=== PATIENT | female | born 1935 | race Caucasian/White ===

== ENCOUNTER 2018-04-27 18:02 | Inpatient (IN) | payer OTHER, MEDICAID ==
[~2018-04-27] VITALS: Ht 152.4 cm; Wt 58.1 kg
[~2018-04-27 18:02] MED LIST: ALPOS OP; ASPI-1093 GT; ATOR10TA GT; DOCU1TAB PO; DONE10TA10 GT; DORZ10SO1 OP; FERR325E14 GT; FURO-572 GT; LEVEMIR SUBQ; LOSA25TA22 GT; MEG40 PO; MEMA10TA GT; METF850T GT; MIRT30TA PO; OLAN5TAB29 PO; OMEP40EC1 PO; POLY15SO48 BOTH EYES; POTA10TE30 PO; PROC4I SUBQ; SLIDE SUBQ; SYN.075 GT; XALOS BOTH EYES; [UNRECOGNIZED DRUG - CODE] GT; [UNRECOGNIZED DRUG - CODE] SUBQ
[2018-04-27 18:15] VITALS: BP 107/53
[2018-04-27] MEDS ORDERED: NACL 0.9% 1,500 ML IV ONE (18:15)
[2018-04-27] MEDS ORDERED: ACET-2619 GT (18:54)
[2018-04-27] MEDS ORDERED: ASCO500T45 GT (18:54)
[2018-04-27 19:03] LABS: BASOPHILS # (AUTO) 0.1 K/uL (0.00-0.22); BASOPHILS % (AUTO) 0.8 % (0.0-2.0); EOSINOPHILS # (AUTO) 0.1 K/uL (0-0.4); LYMPHOCYTES # (AUTO) 1.4 K/uL (2.5-16.5); LYMPHOCYTES % (AUTO) 18.3 % (20.5-51.1); MEAN CORPUSCULAR HEMOGLOBIN 24 pg (27-31); MEAN CORPUSCULAR HGB CONC 29 g/dL (33-37); MEAN CORPUSCULAR VOLUME 83.3 fL (80-94); MONOCYTES # (AUTO) 0.8 K/uL (0.8-1.0); MONOCYTES % (AUTO) 10.2 % (1.7-9.3); NEUTROPHILS # (AUTO) 5.2 K/uL (1.8-7.7); NEUTROPHILS % (AUTO) 69.7 % (42.2-75.2); PLATELET COUNT (AUTO) 268 K/uL (140-450); RED BLOOD CELL COUNT(AUTO) 2.41 MIL/uL (4.20-5.40); RED CELL DISTRIBUTION WIDTH 18.8 % (11.6-13.7); WHITE BLOOD COUNT (AUTO) 7.5 K/uL (4.8-10.8)
[2018-04-27 19:09] LABS: HEMATOCRIT 20.1 % (36-48); HEMOGLOBIN 5.8 g/dL (12.0-16.0)
[2018-04-27 19:11] LABS: ANION GAP 16.7 (8-16); CARBON DIOXIDE 24.6 mmol/L (21-32); CHLORIDE 102 mmol/L (98-107); CREATININE 0.9 mg/dL (0.6-1.3); GLUCOSE 148 mg/dL (74-106); POTASSIUM 4.3 mmol/L (3.5-5.1); SODIUM SERUM 139 mmol/L (136-145); UREA NITROGEN, BLOOD 39 mg/dL (7-18)
[2018-04-27 19:18] LABS: ASPARTATE AMINOTRANSFERASE 15 U/L (15-37); LIPASE 246 U/L (73-393); TOTAL BILIRUBIN 0.2 mg/dL (0.0-1.0)
[2018-04-27 19:22] LABS: APPEARANCE,URINE CLEAR (CLEAR); BILIRUBIN,URINE NEGATIVE (NEGATIVE); BLOOD, URINE NEGATIVE (NEGATIVE); COLOR,URINE YELLOW (YELLOW); LEUKOCYTE ESTERASE ,URINE NEGATIVE (NEGATIVE); NITRITE, URINE NEGATIVE (NEGATIVE); PH,URINE 6.5 (5.0-9.0); UGLUCOSE NEGATIVE (NEGATIVE)
[2018-04-27 19:25] LABS: PROTHROMBIN TIME 10.8 secs (10.8-13.4)
[2018-04-27] MEDS ORDERED: NACL 0.9% 1,000 ML IV SCH (19:42)
[2018-04-27] MEDS ORDERED: HYDROcodone/APAP 7.5/325 MG 1 TAB PO PRN (19:45)
[2018-04-27] MEDS ORDERED: DOCUSATE SODIUM 100 MG GELCAP PO PRN (19:45)
[2018-04-27] MEDS ORDERED: ACETAMINOPHEN 325 MG TAB PO PRN (19:45)
[2018-04-27 20:28] LABS: CHOL/HDL RATIO 2.6 (1-4.5); FREE T4 (FREE THYROXINE) 1.27 ng/dL (0.76-1.46); MAGNESIUM 2.1 mg/dL (1.8-2.4); PHOSPHORUS 2.7 mg/dL (2.5-4.9); THYROID STIMULATING HORMONE 5.11 uIU/mL (0.34-3.74)
[2018-04-27 20:30] VITALS: BP 91/45
[2018-04-27] MEDS ORDERED: PIPER/TAZO 3.375GM/D5W PREMIX 50 ML IV STA (20:32)
[2018-04-27] MEDS ORDERED: PIPERACILLIN/TAZOBACTAM 3.375 GM VIAL IV ONE (20:42)
[2018-04-27] MEDS ORDERED: DEXTROSE 50% 50 ML SYR IVP PRN (21:50)
[2018-04-27] MEDS: DEXT 5% / NACL 0.9% 500 ML IV SCH (22:00)
[2018-04-28] VITALS: BP 111/48
[2018-04-28] MEDS ORDERED: KETOROLAC 15 MG/ML VIAL IVP SCH
[2018-04-28] MEDS: DEXT 5% / NACL 0.9% 500 ML IV SCH ×3 (03:17→18:47)
[2018-04-28 04:00] VITALS: BP 106/48
[2018-04-28] MEDS: LEVOTHYROXINE 0.075 MG TAB GT SCH (05:47)
[2018-04-28] MEDS: BLOOD GLUCOSE MONITORING 1 DEV DEV FS SCH ×4 (06:33→21:41)
[2018-04-28 06:54] LABS: BASOPHILS # (AUTO) 0.1 K/uL (0.00-0.22); BASOPHILS % (AUTO) 1.1 % (0.0-2.0); EOSINOPHILS # (AUTO) 0.1 K/uL (0-0.4); HEMATOCRIT 25.5 % (36-48); HEMOGLOBIN 8.2 g/dL (12.0-16.0); LYMPHOCYTES % (AUTO) 17.4 % (20.5-51.1); MEAN CORPUSCULAR HEMOGLOBIN 27 pg (27-31); MEAN CORPUSCULAR HGB CONC 32 g/dL (33-37); MEAN CORPUSCULAR VOLUME 83.5 fL (80-94); MONOCYTES # (AUTO) 0.7 K/uL (0.8-1.0); MONOCYTES % (AUTO) 11.7 % (1.7-9.3); NEUTROPHILS # (AUTO) 3.9 K/uL (1.8-7.7); NEUTROPHILS % (AUTO) 67.8 % (42.2-75.2); PLATELET COUNT (AUTO) 193 K/uL (140-450); RED BLOOD CELL COUNT(AUTO) 3.06 MIL/uL (4.20-5.40); RED CELL DISTRIBUTION WIDTH 15.6 % (11.6-13.7); WHITE BLOOD COUNT (AUTO) 5.7 K/uL (4.8-10.8)
[2018-04-28 07:19] LABS: MAGNESIUM 1.9 mg/dL (1.8-2.4); PHOSPHORUS 3.1 mg/dL (2.5-4.9)
[2018-04-28 07:27] LABS: ANION GAP 12.4 (8-16); CARBON DIOXIDE 24.4 mmol/L (21-32); CHLORIDE 108 mmol/L (98-107); CREATININE 0.7 mg/dL (0.6-1.3); GLUCOSE 145 mg/dL (74-106); POTASSIUM 3.8 mmol/L (3.5-5.1); SODIUM SERUM 141 mmol/L (136-145); UREA NITROGEN, BLOOD 34 mg/dL (7-18)
[2018-04-28 08:00] VITALS: BP 107/43
[2018-04-28 08:19] LABS: T4 (THYROXINE) 9.8 ug/dL (4.5-12.0)
[2018-04-28] MEDS ORDERED: FUROSEMIDE 20 MG TAB GT SCH (09:00)
[2018-04-28] MEDS ORDERED: metFORMIN 850 MG TAB GT SCH (09:00)
[2018-04-28] MEDS ORDERED: DOCUSATE SOD/SENNA 50/8.6 MG 1 TAB PO SCH (09:00)
[2018-04-28] MEDS: ASCORBIC ACID 500 MG TAB GT SCH (09:16)
[2018-04-28] MEDS: MEMANTINE 10 MG TAB GT SCH ×2 (09:17→21:43)
[2018-04-28 12:00] VITALS: BP 110/34
[2018-04-28] MEDS: INSULIN LISPRO SLIDING SCALE 100 UNITS/ML VIAL SUBQ PRN ×2 (12:05→17:25)
[2018-04-28] MEDS: LATANOPROST 0.005% OP 2.5 ML BTL BOTH EYES SCH (12:30)
[2018-04-28] MEDS: DORZOLAMIDE 2% OP 10 ML BTL OP SCH ×2 (13:00→17:00)
[2018-04-28] MEDS ORDERED: fentaNYL 0.05 MG/ML VIAL ONE (13:13)
[2018-04-28] MEDS ORDERED: MIDAZOLAM 2 MG/2 ML VIAL ONE (13:13)
[2018-04-28] MEDS ORDERED: diphenhydrAMINE 50 MG/ML VIAL ONE (13:13)
[2018-04-28 14:20] VITALS: BP 136/54
[2018-04-28] MEDS ORDERED: MAGNESIUM CITRATE 300 ML BTL PO SCH (14:30)
[2018-04-28] MEDS ORDERED: fentaNYL 0.05 MG/ML VIAL IVP ONE (14:35)
[2018-04-28] MEDS ORDERED: MIDAZOLAM 2 MG/2 ML VIAL IVP ONE (14:35)
[2018-04-28] MEDS ORDERED: SODIUM FERRIC GLUCONATE 125 MG in NACL 0.9% 100 ML IV SCH (15:00)
[2018-04-28 20:00] VITALS: BP 118/44
[2018-04-28] MEDS: BRIMONIDINE TARTRATE 0.2% OP 5 ML BTL OP SCH (21:00)
[2018-04-28] MEDS ORDERED: INSULIN LANTUS 100 UNITS/ML 10 ML VIAL SUBQ SCH (21:00)
[2018-04-28] MEDS: SENNA 8.6 MG TAB PO SCH (21:42)
[2018-04-28] MEDS: ATORVASTATIN 20 MG TAB GT SCH (21:42)
[2018-04-28] MEDS: LACTULOSE 20 GM/30 ML UDC PO SCH (21:43)
[2018-04-28] MEDS: DONEPEZIL 10 MG TAB GT SCH (21:43)
[2018-04-29] MEDS ORDERED: KETOROLAC 15 MG/ML VIAL IVP PRN
[2018-04-29] MEDS: LEVOTHYROXINE 0.075 MG TAB GT SCH (06:17)
[2018-04-29] MEDS: BLOOD GLUCOSE MONITORING 1 DEV DEV FS SCH ×4 (06:24→21:32)
[2018-04-29 06:44] LABS: BASOPHILS # (AUTO) 0.1 K/uL (0.00-0.22); BASOPHILS % (AUTO) 0.7 % (0.0-2.0); EOSINOPHILS # (AUTO) 0.1 K/uL (0-0.4); EOSINOPHILS % (AUTO) 0.8 % (0.0-4.0); HEMATOCRIT 30.7 % (36-48); HEMOGLOBIN 9.9 g/dL (12.0-16.0); LYMPHOCYTES # (AUTO) 0.9 K/uL (2.5-16.5); LYMPHOCYTES % (AUTO) 11.2 % (20.5-51.1); MEAN CORPUSCULAR HEMOGLOBIN 27 pg (27-31); MEAN CORPUSCULAR HGB CONC 32 g/dL (33-37); MEAN CORPUSCULAR VOLUME 82.2 fL (80-94); MONOCYTES # (AUTO) 0.7 K/uL (0.8-1.0); MONOCYTES % (AUTO) 8.7 % (1.7-9.3); NEUTROPHILS # (AUTO) 6.6 K/uL (1.8-7.7); NEUTROPHILS % (AUTO) 78.6 % (42.2-75.2); PLATELET COUNT (AUTO) 228 K/uL (140-450); RED BLOOD CELL COUNT(AUTO) 3.74 MIL/uL (4.20-5.40); RED CELL DISTRIBUTION WIDTH 16.6 % (11.6-13.7); WHITE BLOOD COUNT (AUTO) 8.3 K/uL (4.8-10.8)
[2018-04-29 07:10] LABS: ANION GAP 12.6 (8-16); CARBON DIOXIDE 25.9 mmol/L (21-32); CHLORIDE 105 mmol/L (98-107); CREATININE 0.6 mg/dL (0.6-1.3); GLUCOSE 210 mg/dL (74-106); POTASSIUM 3.5 mmol/L (3.5-5.1); SODIUM SERUM 140 mmol/L (136-145); UREA NITROGEN, BLOOD 12 mg/dL (7-18)
[2018-04-29] MEDS: INSULIN LISPRO SLIDING SCALE 100 UNITS/ML VIAL SUBQ PRN ×4 (07:47→20:51)
[2018-04-29 08:00] VITALS: BP 127/47
[2018-04-29] MEDS: SENNA 8.6 MG TAB PO SCH ×2 (09:00→20:38)
[2018-04-29] MEDS: BRIMONIDINE TARTRATE 0.2% OP 5 ML BTL OP SCH ×3 (09:00→20:40)
[2018-04-29] MEDS: DORZOLAMIDE 2% OP 10 ML BTL OP SCH ×4 (09:00→17:00)
[2018-04-29] MEDS: LACTULOSE 20 GM/30 ML UDC PO SCH (09:00)
[2018-04-29 09:07] LABS: TRANSFERRIN 332 mg/dL (200-370)
[2018-04-29] MEDS: SODIUM FERRIC GLUCONATE 125 MG in NACL 0.9% 100 ML IV SCH ×2 (09:57→20:40)
[2018-04-29] MEDS: MEMANTINE 10 MG TAB GT SCH ×2 (09:57→20:39)
[2018-04-29] MEDS: ASCORBIC ACID 500 MG TAB GT SCH (09:58)
[2018-04-29] MEDS: MULTIVITAMIN 1 TAB PO SCH (09:58)
[2018-04-29] MEDS: LATANOPROST 0.005% OP 2.5 ML BTL BOTH EYES SCH (10:09)
[2018-04-29 12:00] VITALS: BP 136/56
[2018-04-29] MEDS ORDERED: THERAHONEY WOUND DRESSING TP PRN (12:40)
[2018-04-29] MEDS ORDERED: CHLORHEXADINE GLUC 2% CLOTH TP SCH (13:00)
[2018-04-29] MEDS: CHLORHEXADINE GLUC 2% CLOTH TP SCH (13:01)
[2018-04-29] MEDS: MUPIROCIN 2% OINT 22 GM TUBE TP SCH (13:08)
[2018-04-29 16:00] VITALS: BP 121/43
[2018-04-29 16:07] LABS: FOLIC ACID > 20.00 ng/mL (>3.0)
[2018-04-29] MEDS: NACL 0.9% 1,000 ML IV SCH (16:10)
[2018-04-29] MEDS ORDERED: MAGNESIUM HYDROXIDE 2400 MG/30 ML UDC PO PRN (16:15)
[2018-04-29 20:00] VITALS: BP 118/70
[2018-04-29] MEDS: DONEPEZIL 10 MG TAB GT SCH (20:38)
[2018-04-29] MEDS: ATORVASTATIN 20 MG TAB GT SCH (20:39)
[2018-04-29] MEDS: SKINTEGRITY HYDROGEL TP SCH (20:41)
[2018-04-30] VITALS: BP 127/58
[2018-04-30 05:20] VITALS: BP 123/60
[2018-04-30] MEDS: NACL 0.9% 1,000 ML IV SCH ×2 (05:56→21:06)
[2018-04-30] MEDS: BLOOD GLUCOSE MONITORING 1 DEV DEV FS SCH ×4 (06:09→20:49)
[2018-04-30] MEDS: LEVOTHYROXINE 0.075 MG TAB GT SCH (06:09)
[2018-04-30] MEDS: INSULIN LISPRO SLIDING SCALE 100 UNITS/ML VIAL SUBQ PRN ×4 (06:16→20:16)
[2018-04-30 06:32] LABS: BASOPHILS # (AUTO) 0.1 K/uL (0.00-0.22); BASOPHILS % (AUTO) 1.1 % (0.0-2.0); EOSINOPHILS # (AUTO) 0.1 K/uL (0-0.4); EOSINOPHILS % (AUTO) 1.3 % (0.0-4.0); HEMATOCRIT 26.6 % (36-48); HEMOGLOBIN 8.8 g/dL (12.0-16.0); LYMPHOCYTES # (AUTO) 1.1 K/uL (2.5-16.5); LYMPHOCYTES % (AUTO) 12.2 % (20.5-51.1); MEAN CORPUSCULAR HEMOGLOBIN 27 pg (27-31); MEAN CORPUSCULAR HGB CONC 33 g/dL (33-37); MEAN CORPUSCULAR VOLUME 82.8 fL (80-94); MONOCYTES # (AUTO) 0.7 K/uL (0.8-1.0); MONOCYTES % (AUTO) 7.1 % (1.7-9.3); NEUTROPHILS # (AUTO) 7.3 K/uL (1.8-7.7); NEUTROPHILS % (AUTO) 78.3 % (42.2-75.2); PLATELET COUNT (AUTO) 220 K/uL (140-450); RED BLOOD CELL COUNT(AUTO) 3.21 MIL/uL (4.20-5.40); RED CELL DISTRIBUTION WIDTH 16.8 % (11.6-13.7); WHITE BLOOD COUNT (AUTO) 9.4 K/uL (4.8-10.8)
[2018-04-30 06:44] LABS: ANION GAP 12.6 (8-16); CARBON DIOXIDE 24.8 mmol/L (21-32); CHLORIDE 106 mmol/L (98-107); CREATININE 0.5 mg/dL (0.6-1.3); GLUCOSE 237 mg/dL (74-106); POTASSIUM 3.4 mmol/L (3.5-5.1); SODIUM SERUM 140 mmol/L (136-145); UREA NITROGEN, BLOOD 7 mg/dL (7-18)
[2018-04-30 08:00] VITALS: BP 122/48
[2018-04-30] MEDS: BRIMONIDINE TARTRATE 0.2% OP 5 ML BTL OP SCH ×2 (08:24→20:06)
[2018-04-30] MEDS: LATANOPROST 0.005% OP 2.5 ML BTL BOTH EYES SCH (08:24)
[2018-04-30] MEDS: MEMANTINE 10 MG TAB GT SCH ×2 (08:25→20:06)
[2018-04-30] MEDS: LACTULOSE 20 GM/30 ML UDC PO SCH (08:25)
[2018-04-30] MEDS: DORZOLAMIDE 2% OP 10 ML BTL OP SCH ×3 (08:25→16:25)
[2018-04-30] MEDS: ASCORBIC ACID 500 MG TAB GT SCH (08:25)
[2018-04-30] MEDS: MULTIVITAMIN 1 TAB PO SCH (08:25)
[2018-04-30] MEDS: SENNA 8.6 MG TAB PO SCH ×2 (08:25→20:06)
[2018-04-30] MEDS: SODIUM FERRIC GLUCONATE 125 MG in NACL 0.9% 100 ML IV SCH (08:26)
[2018-04-30] MEDS: SKINTEGRITY HYDROGEL TP SCH ×2 (08:26→20:07)
[2018-04-30] MEDS ORDERED: THERAHONEY WOUND DRESSING TP SCH (09:00)
[2018-04-30] MEDS: CHLORHEXADINE GLUC 2% CLOTH TP SCH (12:11)
[2018-04-30] MEDS: MUPIROCIN 2% OINT 22 GM TUBE TP SCH (12:11)
[2018-04-30] MEDS ORDERED: MAGNESIUM HYDROXIDE 2400 MG/30 ML UDC PO SCH ×2 (13:30→15:00)
[2018-04-30] MEDS ORDERED: POTASSIUM CHLORIDE 10 MEQ TABER PO SCH (13:37)
[2018-04-30] MEDS ORDERED: POTASSIUM CHLORIDE 20% 40 MEQ/15 ML UDC GT SCH (14:30)
[2018-04-30 16:00] VITALS: BP 122/51
[2018-04-30] MEDS: DONEPEZIL 10 MG TAB GT SCH (20:06)
[2018-04-30] MEDS: ATORVASTATIN 20 MG TAB GT SCH (20:06)
[2018-05-01] VITALS: BP 136/53
[2018-05-01] MEDS: LEVOTHYROXINE 0.075 MG TAB GT SCH (05:53)
[2018-05-01] MEDS: INSULIN LISPRO SLIDING SCALE 100 UNITS/ML VIAL SUBQ PRN ×4 (05:56→21:04)
[2018-05-01] MEDS: BLOOD GLUCOSE MONITORING 1 DEV DEV FS SCH ×4 (06:34→21:05)
[2018-05-01 06:42] LABS: BASOPHILS # (AUTO) 0.1 K/uL (0.00-0.22); BASOPHILS % (AUTO) 0.9 % (0.0-2.0); EOSINOPHILS # (AUTO) 0.2 K/uL (0-0.4); EOSINOPHILS % (AUTO) 2.4 % (0.0-4.0); HEMATOCRIT 27.1 % (36-48); HEMOGLOBIN 8.8 g/dL (12.0-16.0); LYMPHOCYTES # (AUTO) 0.9 K/uL (2.5-16.5); LYMPHOCYTES % (AUTO) 11.9 % (20.5-51.1); MEAN CORPUSCULAR HEMOGLOBIN 27 pg (27-31); MEAN CORPUSCULAR HGB CONC 32 g/dL (33-37); MEAN CORPUSCULAR VOLUME 84.5 fL (80-94); MONOCYTES # (AUTO) 0.6 K/uL (0.8-1.0); MONOCYTES % (AUTO) 8.3 % (1.7-9.3); NEUTROPHILS # (AUTO) 5.7 K/uL (1.8-7.7); NEUTROPHILS % (AUTO) 76.5 % (42.2-75.2); PLATELET COUNT (AUTO) 217 K/uL (140-450); RED BLOOD CELL COUNT(AUTO) 3.21 MIL/uL (4.20-5.40); RED CELL DISTRIBUTION WIDTH 17.2 % (11.6-13.7); WHITE BLOOD COUNT (AUTO) 7.4 K/uL (4.8-10.8)
[2018-05-01 07:24] LABS: ANION GAP 16.4 (8-16); CARBON DIOXIDE 23.3 mmol/L (21-32); CHLORIDE 107 mmol/L (98-107); CREATININE 0.6 mg/dL (0.6-1.3); GLUCOSE 208 mg/dL (74-106); POTASSIUM 4.7 mmol/L (3.5-5.1); SODIUM SERUM 142 mmol/L (136-145); UREA NITROGEN, BLOOD 8 mg/dL (7-18)
[2018-05-01 07:50] VITALS: BP 149/60
[2018-05-01] MEDS: LATANOPROST 0.005% OP 2.5 ML BTL BOTH EYES SCH (09:00)
[2018-05-01] MEDS: LACTULOSE 20 GM/30 ML UDC PO SCH (09:30)
[2018-05-01] MEDS: MEMANTINE 10 MG TAB GT SCH ×2 (09:31→20:54)
[2018-05-01] MEDS: SENNA 8.6 MG TAB PO SCH ×2 (09:31→20:54)
[2018-05-01] MEDS: ASCORBIC ACID 500 MG TAB GT SCH (09:31)
[2018-05-01] MEDS: MULTIVITAMIN 1 TAB PO SCH (09:32)
[2018-05-01] MEDS: DORZOLAMIDE 2% OP 10 ML BTL OP SCH ×3 (09:50→17:00)
[2018-05-01] MEDS: BRIMONIDINE TARTRATE 0.2% OP 5 ML BTL OP SCH ×2 (10:00→20:54)
[2018-05-01] MEDS: SKINTEGRITY HYDROGEL TP SCH ×2 (10:10→21:04)
[2018-05-01] MEDS: MUPIROCIN 2% OINT 22 GM TUBE TP SCH (13:00)
[2018-05-01] MEDS: CHLORHEXADINE GLUC 2% CLOTH TP SCH (13:00)
[2018-05-01] MEDS ORDERED: HYDGEL TP (13:18)
[2018-05-01] MEDS ORDERED: LACT10SO11 PO (13:18)
[2018-05-01] MEDS ORDERED: INSU100S53 SC ×2 (13:20→13:32)
[2018-05-01] MEDS ORDERED: LACT10SO11 GT (13:30)
[2018-05-01] MEDS ORDERED: FERR325E14 GT (13:30)
[2018-05-01] MEDS ORDERED: PNEUMOCOCCAL VACCINE 23 MCG/0.5 ML VIAL IMVAC SCH (14:30)
[2018-05-01 16:00] VITALS: BP 136/57
[2018-05-01] MEDS: NACL 0.9% 1,000 ML IV SCH (17:44)
[2018-05-01] MEDS: ATORVASTATIN 20 MG TAB GT SCH (20:53)
[2018-05-01] MEDS: DONEPEZIL 10 MG TAB GT SCH (20:54)
[2018-05-02] MEDS ORDERED: SODIUM FERRIC GLUCONATE 125 MG in NACL 0.9% 100 ML IV SCH (09:00)
== END 2018-05-01 23:15 | DRG 811 ==
LOC: MED 18:02 → MTU 19:44
PROVIDERS: ADMIT General Practice; ATTEND General Practice
PROC: 30233N1 Transfusion of Nonautologous Red Blood Cells into Peripheral Vein, Percutaneous Approach (ICD-10-PCS; 2018-04-27)
PROC: 30233N1 Transfusion of Nonautologous Red Blood Cells into Peripheral Vein, Percutaneous Approach (ICD-10-PCS; 2018-04-28)
PROC: 0DB98ZX Excision of Duodenum, Via Natural or Artificial Opening Endoscopic, Diagnostic (ICD-10-PCS; principal; 2018-04-28 13:45)
DX: D50.9 Iron deficiency anemia, unspecified (principal); N17.0 Acute kidney failure with tubular necrosis; D68.69 Other thrombophilia; E44.0 Moderate protein-calorie malnutrition; L97.419 Non-pressure chronic ulcer of right heel and midfoot with unspecified severity; I48.2 Chronic atrial fibrillation; M85.80 Other specified disorders of bone density and structure, unspecified site; I25.10 Atherosclerotic heart disease of native coronary artery without angina pectoris; I10 Essential (primary) hypertension; F03.90 Unspecified dementia, unspecified severity, without behavioral disturbance, psychotic disturbance, mood disturbance, and anxiety; K56.41 Fecal impaction; L89.612 Pressure ulcer of right heel, stage 2; I48.91 Unspecified atrial fibrillation; E11.51 Type 2 diabetes mellitus with diabetic peripheral angiopathy without gangrene; E11.621 Type 2 diabetes mellitus with foot ulcer; K21.9 Gastro-esophageal reflux disease without esophagitis; H40.9 Unspecified glaucoma; E03.9 Hypothyroidism, unspecified; E11.9 Type 2 diabetes mellitus without complications; Z95.5 Presence of coronary angioplasty implant and graft; Z93.1 Gastrostomy status; Z88.5 Allergy status to narcotic agent; Z88.8 Allergy status to other drugs, medicaments and biological substances; Z79.899 Other long term (current) drug therapy; Z86.73 Personal history of transient ischemic attack (TIA), and cerebral infarction without residual deficits; Z83.3 Family history of diabetes mellitus; Z80.9 Family history of malignant neoplasm, unspecified; Z82.49 Family history of ischemic heart disease and other diseases of the circulatory system
CPT/HCPCS: 36415; 51702; 71045; 72220; 73630; 74018; 80048; 80053; 81003; 82140; 82150; 82607; 82746; 82948; 83036; 83540; 83605; 83690; 83735; 83880; 84100; 84436; 84439; 84443; 84479; 84484; 85025; 85045; 85610; 86886; 86900; 86901; 86920; 87040; 87081; 87086; 88305; 90732; 93005; 93925; 93970; 99285; A6248; J1200; J1815; J1885; J2250; J2543; J2916; J3010; J7030; J7042; P9016; Q0092